=== PATIENT | male | born 1960 | race Caucasian/White ===

== ENCOUNTER 2024-08-14 16:02 | Observation (INO) | payer SELFPAY ==
[~2024-08-14] VITALS: Ht 172.7 cm; Wt 101.6 kg
[2024-08-14 16:42] LABS: BASOPHILS ABSOLUTE AUTO 0.03 K/mm3 (0.00-0.23); BASOPHILS PERCENT AUTO 1 % (0-2); EOSINOPHILS ABSOLUTE AUTO 0.23 K/mm3 (0.00-0.68); EOSINOPHILS PERCENT AUTO 4 % (0-6); Hematocrit 42.5 % (37.0-53.0); Hemoglobin 15.4 g/dL (13.5-17.5); IMMATURE GRAN ABSOLUTE AUTO 0.01 K/mm3 (0.00-0.10); IMMATURE GRAN PERCENT AUTO 0 % (0-1); LYMPHOCYTES ABSOLUTE AUTO 2.21 K/mm3 (0.84-5.20); LYMPHOCYTES PERCENT AUTO 36 % (21-46); MONOCYTES ABSOLUTE AUTO 0.64 K/mm3 (0.16-1.47); MONOCYTES PERCENT AUTO 10 % (4-13); Mean Corpuscular HGB 29.8 pg (26.0-34.0); Mean Corpuscular HGB Conc 36.2 g/dL (31.5-36.5); Mean Corpuscular Volume 82 fL (80-100); Mean Platelet Volume 8.7 fL (9.1-12.4); NEUTROPHILS ABSOLUTE AUTO 3.11 K/mm3 (1.96-9.15); NEUTROPHILS PERCENT AUTO 50 % (41-73); Platelet Count 201 K/mm3 (150-400); RDW Coefficient Variation 12.6 % (11.7-14.2); RDW Standard Deviation 38.1 fL (35.1-46.3); Red Blood Cell Count 5.16 M/mm3 (4.30-5.90); White Blood Cell Count 6.23 K/mm3 (4.00-11.30)
[2024-08-14 17:07] LABS: Albumin, Blood 3.8 g/dL (3.4-5.0); Albumin/Globulin Ratio 1.1 (0.8-1.8); Bilirubin, Total 0.4 mg/dL (0.1-1.0); Bun/Creatinine Ratio 26.7 (12.0-20.0); Calcium, Blood 8.9 mg/dL (8.5-10.1); Creatinine, Blood 1.01 mg/dL (0.60-1.20); Globulin, Blood 3.5 g/dL (2.2-4.0); Potassium, Blood 3.7 mmol/L (3.5-5.5); Total Protein, Blood 7.3 g/dL (6.4-8.2)
[2024-08-14] MEDS ORDERED: Ondansetron HCl 2 MG / ML 2ML Vial IV PRN (20:30)
[2024-08-14] MEDS ORDERED: FLU VACC TS2024-25(6MOS UP)/PF 45 MCG/0.5 ML SYRINGE IM SCH (20:30)
[2024-08-14] MEDS ORDERED: Aspirin 325 MG Tab PO ONE (21:00)
--- NOTE | 2024-08-14 22:48 | NUR ---
WORKED AHEAD ON ADMISSION PT WAS GOING TO BE A MEDICAL FLOOR ADMISSION.
[2024-08-15 01:26] VITALS: BP 155/98
[2024-08-15] MEDS ORDERED: Calcium Carbonate 500 MG Tab Chew PO PRN (01:45)
[2024-08-15 03:51] VITALS: BP 137/97
--- NOTE | 2024-08-15 04:50 | NUR ---
SHIFT SUMMARY PT ARRIVED TO ROOM 210 AT APPROXIMATELY 0120 FROM THE ER. PT INDEPENDENTLY TRANSFERRED TO HOSPITAL BED. PT IS A&O X4, NO SLURRED SPEECH, NO FACIAL DROOP. PT ABLE TO AMBULATE INDEPENDENTLY IN ROOM. VSS, AFEBRILE, TELE SHOWS SR. PT REPORTS HAVING A PACEMAKER SINCE HIS 30'S BUT STATES THAT IT HAS NOT BEEN WORKING FOR APPROXIMATELY 4 YEARS. HE DENIES SOB OR CP AT THIS TIME. HE IS RESTING QUIETLY IN BED, BREATHING IS EVEN AND UNLABORED, CALL LIGHT IN REACH.
[2024-08-15 05:41] LABS: CHOL/HDL RATIO 3.3; Cholesterol 183 mg/dL (50-200); HDL Cholesterol 56 mg/dL (>39); LDL/HDL RATIO 1.9; Low Density Lipoprotein Chol 109 mg/dL (0-110); Triglycerides 90 mg/dL (30-160); Very Low Density Lipoprot Chol 18 mg/dL (6-32)
[2024-08-15 07:29] VITALS: BP 141/100
[2024-08-15] MEDS ORDERED: Atorvastatin 40 MG Tab PO SCH (09:00)
[2024-08-15] MEDS ORDERED: Enoxaparin 40 MG/0.4 ML SYR SC SCH (09:00)
[2024-08-15] MEDS ORDERED: Aspirin 81 MG Chew PO SCH (09:00)
[2024-08-15] MEDS ORDERED: ASPI81CH PO (10:55)
[2024-08-15] MEDS ORDERED: Crestor40 MG PO (10:55)
--- NOTE | 2024-08-15 11:09 | NUR ---
TELE BOX RETURNED TO PCU.
[2024-08-15 11:12] VITALS: BP 137/92
--- NOTE | 2024-08-15 11:20 | NUR ---
DISCHARGE NOTE NO S/S OF STROKE OR TIA, NO FACIAL DROOPING OR WEAKNESS IN EXTREMITIES PRESENT. PT IND IN ROOM, TOLERATING FLUIDS AND RED DIET, VOIDING APPROPRIATELY. VSS. SPLINT IN PLACE ON L RING FINGER. PT DC'D TO PRIVATE RIDE HOME VIA W/ DC INSTRUCTIONS AND BELONGINGS.
== END 2024-08-15 11:20 | disposition home or self-care (01) ==
LOC: ER 16:02 → SURS 16:03 → ERHOLD 16:03 → SURS 08-15 01:17
PROVIDERS: Nurse Practitioner Acute Care; Physician Assistant; ADMIT Student in an Organized Health Care Education/Training Program
DX: G45.9 Transient cerebral ischemic attack, unspecified (principal); S63.255A Unspecified dislocation of left ring finger, initial encounter; I36.1 Nonrheumatic tricuspid (valve) insufficiency; Z95.0 Presence of cardiac pacemaker; Z86.73 Personal history of transient ischemic attack (TIA), and cerebral infarction without residual deficits
CPT/HCPCS: 26770; 36415; 70450; 71046; 73130; 73140; 80053; 80061; 83036; 85025; 93005; 93010; 93306; 93880; 99285-25; A9270; G0378; J1650